=== PATIENT | female | born 2000 | race Caucasian/White ===

== ENCOUNTER 2024-04-04 12:16 | Emergency (ER) | payer MEDICAID ==
[~2024-04-04] VITALS: Ht 162.6 cm; Wt 55.0 kg
[2024-04-04 12:23] VITALS: O2SAT 98
[2024-04-04] MEDS: ACETAMINOPHEN 325MG TABLET PO ONE (14:39)
[2024-04-04] MEDS: ONDANSETRON 4MG ODT PO ONE (14:40)
[2024-04-04 15:00] VITALS: BP 123/87; PULSE 88; RESP 18; TEMP 98.9
== END 2024-04-04 15:55 | disposition home or self-care (01) ==
LOC: ER 12:16
DX: S09.8XXA Other specified injuries of head, initial encounter (principal); M25.511 Pain in right shoulder; M54.2 Cervicalgia; M54.9 Dorsalgia, unspecified; F41.9 Anxiety disorder, unspecified; F43.10 Post-traumatic stress disorder, unspecified; Y08.89XA Assault by other specified means, initial encounter; Y93.89 Activity, other specified; Y92.89 Other specified places as the place of occurrence of the external cause; Y99.8 Other external cause status
CPT/HCPCS: 99284; 70450; 81025; 73030; 72125; Q0162